=== PATIENT | female | born 1945 | race African-American/Black ===

== ENCOUNTER 2017-05-31 08:15 | Outpatient (RCR) | payer OTHER ==
[~2017-05-31 08:15] MED LIST: CALCIUM + VITA1 EAC1 PO; MULTIVITAMINS1 EAC2 ORAL
== END 2017-06-07 | disposition home or self-care (01) ==
LOC: PTY 08:15
DX: M25.561 Pain in right knee (principal); M25.562 Pain in left knee; G89.29 Other chronic pain; M19.90 Unspecified osteoarthritis, unspecified site
CPT/HCPCS: 97110; 97162; G0283

== ENCOUNTER 2017-06-20 08:15 | Outpatient (RCR) | payer OTHER | END 2017-07-07 | disposition home or self-care (01) | LOC: PTY 08:15 | DX: M25.561 Pain in right knee (principal); M25.562 Pain in left knee; G89.29 Other chronic pain | CPT/HCPCS: 97110; 97140; G0283 ==

== ENCOUNTER 2017-07-26 08:15 | Outpatient (RCR) | payer OTHER | END 2017-08-07 | disposition home or self-care (01) | LOC: PTY 08:15 | DX: M25.561 Pain in right knee (principal); M25.562 Pain in left knee; G89.29 Other chronic pain ==

== ENCOUNTER 2017-08-30 08:15 | Outpatient (RCR) | payer OTHER | END 2017-09-07 | disposition home or self-care (01) | LOC: PTY 08:15 | DX: M25.561 Pain in right knee (principal); M25.562 Pain in left knee; G89.29 Other chronic pain; R53.1 Weakness; M19.90 Unspecified osteoarthritis, unspecified site ==